=== PATIENT | female | born 1990 | race African-American/Black ===

== ENCOUNTER 2017-03-11 18:25 | Emergency (ER) | payer MEDICAID, OTHER ==
[~2017-03-11] VITALS: Ht 152.4 cm; Wt 73.0 kg
[2017-03-11] MEDS ORDERED: ALBU2SYR PO (18:35)
[2017-03-11] MEDS ORDERED: ALBU18HF2 IH (18:35)
[2017-03-11 19:20] VITALS: BP 117/78
[2017-03-11] MEDS ORDERED: IPRATROPIUM/ALBUTEROL 0.5-3(2.5)MG/3ML NEB HHN ONE (20:45)
[2017-03-11] MEDS ORDERED: DEXAMETHASONE 10MG/ML 1ML VIAL IV ONE (20:45)
== END 2017-03-11 21:44 | disposition home or self-care (01) ==
LOC: ER 19:30
DX: J45.901 Unspecified asthma with (acute) exacerbation (principal)
CPT/HCPCS: 81025; 94640; 96374; 99284; J1100; J7620